=== PATIENT | female | born 1975 | race American Indian/Alaskan Native ===

== ENCOUNTER 2016-09-17 17:15 | Emergency (ER) | payer SELFPAY ==
[2016-09-17 18:39] LABS: Bacteria,Urine 1+ /HPF (Negative); Bilirubin,Urine NEG (Negative); Blood,Urine NEG (Negative); Ketones,Urine NEG (Negative); Leukocyte Esterase,Urine MOD (Negative); Mucus,Urine FEW /HPF; Nitrite,Urine NEG (Negative)
[2016-09-17] MEDS ORDERED: CATAPRES PO ONE (21:56)
[2016-09-17] MEDS ORDERED: BACTRIM DS PO ONE (21:57)
[2016-09-17 22:26] VITALS: BP 134/90
--- NOTE | 2016-09-17 22:53 | Emergency Department Report ---
Entered by LISA CLARK, acting as scribe for MARK ANTHONY PEREZ PA. ED Female HPI - General Chief complaint: Urogenital-Female Stated complaint: POSS UTI Time Seen by Provider: 09/17/16 19:42 Source: patient Mode of arrival: Ambulatory Limitations: No Limitations - History of Present Illness Initial comments: 41 y/o female with a PMHx of HTN and obesity presents to the ED c/o dysuria that began 1 week ago. Rates severity a 4/10. Aggravated with urination and alleviated with nothing. Reports associated vaginal discharge with a foul odor, but she denies vaginal itching, hematuria, vaginal bleeding, fever, chills, nausea, and vomiting. Reports small spotting when she wipes after urination. Notes she has bacterial vaginosis 2x a year, which she states her symptoms feels similar to her previous episodes. Patient blood pressure is currently elevated in the ED and she reports a slight headache, but she denies dizziness, vision changes, and stiff neck. NKDA. JESUS Complaint: vaginal discharge, dysuria Onset/Timin -: days(s) Radiation: non-radiating Severity: mild Severity scale (0 -10): 4 Quality: burning Consistency: constant Improves with: none Worsens with: urination Associated Symptoms: denies other symptoms, vaginal discharge (with foul odor), headaches (slight), dysuria. denies: vaginal bleeding, abdominal pain, nausea/ vomiting, fever/chills, loss of appetite, hematuria, rash, seizure, shortness of breath, syncope, weakness - Related Data Previous Rx's Medication Instructions Recorded Last Taken Type cloNIDine [Catapres] 0.1 mg PO BID #60 tablet 09/24/15 Unknown Rx metroNIDAZOLE [Flagyl TAB] 500 mg PO Q12HR #14 tab 09/24/15 Unknown Rx Ibuprofen [Motrin 800 MG tab] 800 mg PO Q8HR PRN #15 tablet 09/17/16 Unknown Rx Sulfamethoxazole/Trimethoprim 1 each PO BID #14 tablet 09/17/16 Unknown Rx [Bactrim DS TAB] amLODIPine [Norvasc] 5 mg PO DAILY #30 tab 09/17/16 Unknown Rx metroNIDAZOLE 0.75% [Metrogel 1 applicatio VG QHS #1 tube 09/17/16 Unknown Rx 0.75% TOPICAL] Allergies Allergy/AdvReac Type Severity Reaction Status Date / Time No Known Allergies Allergy Verified 09/17/16 17:51 ED Review of Systems Comment: All other systems reviewed and negative Constitutional: denies: chills, diaphoresis, fever, malaise, weakness Eyes: denies: eye pain, eye discharge, vision change ENT: denies: ear pain, throat pain Respiratory: denies: cough, shortness of breath, wheezing Cardiovascular: denies: chest pain, palpitations Endocrine: no symptoms reported Gastrointestinal: denies: abdominal pain, nausea, vomiting, diarrhea Genitourinary: dysuria, discharge (with a foul odor). denies: urgency, frequency, hematuria, abnormal menses, dyspareunia Musculoskeletal: denies: back pain, joint swelling, arthralgia Skin: denies: rash, lesions Neurological: headache (slight). denies: weakness, numbness, paresthesias, abnormal gait, vertigo Hematological/Lymphatic: denies: easy bleeding, easy bruising ED Past Medical Hx - Past Medical History Previous Medical History?: Yes Hx Hypertension: Yes Hx Congestive Heart Failure: Yes Additional medical history: OBESITY - Surgical History Additional Surgical History: X 3 - Social History Smoking Status: Never Smoker Substance Use Type: None - Medications Home Medications: Home Medications Medication Instructions Recorded Confirmed Last Taken Type cloNIDine [Catapres] 0.1 mg PO BID #60 tablet 09/24/15 Unknown Rx metroNIDAZOLE [Flagyl TAB] 500 mg PO Q12HR #14 tab 09/24/15 Unknown Rx Ibuprofen [Motrin 800 MG tab] 800 mg PO Q8HR PRN #15 tablet 09/17/16 Unknown Rx Sulfamethoxazole/Trimethoprim 1 each PO BID #14 tablet 09/17/16 Unknown Rx [Bactrim DS TAB] amLODIPine [Norvasc] 5 mg PO DAILY #30 tab 09/17/16 Unknown Rx metroNIDAZOLE 0.75% [Metrogel 1 applicatio VG QHS #1 tube 09/17/16 Unknown Rx 0.75% TOPICAL] ED Physical Exam - General Limitations: No Limitations General appearance: alert, in no apparent distress - Head Head exam: Present: atraumatic, normocephalic - Eye Eye exam: Present: normal appearance, PERRL, EOMI Pupils: Present: normal accommodation - ENT ENT exam: Present: normal exam, mucous membranes moist, normal external ear exam - Neck Neck exam: Present: normal inspection, full ROM. Absent: tenderness, meningismus, lymphadenopathy, thyromegaly - Respiratory Respiratory exam: Present: normal lung sounds bilaterally. Absent: respiratory distress, wheezes, rales, rhonchi, stridor, accessory muscle use, decreased breath sounds - Cardiovascular Cardiovascular Exam: Present: regular rate, normal rhythm, normal heart sounds. Absent: systolic murmur, diastolic murmur, rubs, gallop - GI/Abdominal GI/Abdominal exam: Present: soft, normal bowel sounds. Absent: distended, tenderness, guarding, rebound, rigid - External exam: Present: normal external exam. Absent: erythema, swelling, lesions, lacerations Speculum exam: Present: vaginal discharge, cervical discharge Bi-manual exam: Present: normal bi-manual exam. Absent: cervical motion tendernes, adnexal tenderness, adnexal mass, uterine enlargement - Extremities Exam Extremities exam: Present: normal inspection, full ROM - Back Exam Back exam: Present: normal inspection, full ROM. Absent: CVA tenderness (R), CVA tenderness (L) - Neurological Exam Neurological exam: Present: alert, oriented X3, normal gait - Psychiatric Psychiatric exam: Present: normal affect, normal mood - Skin Skin exam: Present: warm, dry, intact. Absent: rash ED Course Vital Signs 09/17/16 09/17/16 09/17/16 17:51 19:44 22:25 Temperature 98.6 F Pulse Rate 83 70 74 Respiratory 18 70 H Rate Blood Pressure 191/103 134/90 Blood Pressure 165/132 [Left] O2 Sat by Pulse 100 99 Oximetry ED Medical Decision Making - Medical Decision Making 41-year-old female presents with any tract infection/bacterial vaginosis ED course: UA ordered on patient. Urinalysis positive for a urinary tract infection, wet prep positive for clue cells Discussed this finding the patient. Blood pressure was elevated proptosis and the patient. Patient's blood pressure reduced to 132/94 prior to discharge so there was no need to treat the pressure in ED She is a symptomatic in the ED discussed the patient very important to follow- up with the primary care for blood pressure control. This Patient states she understands instructions. Discussed the patient with discharge home with blood pressure medication as she she'll take daily if blood pressure continues to rise and follow-up with the primary care as soon as possible. Vital signs stable patient is in no acute or respiratory distress. Discussed findings with patient about diagnoses. Discussed treatment in ED with patient Discussed antibiotics with patient as prescribed. Discussed with patient to follow up with [facility] as referred, and to return to the ED if symptoms return or worsen. Patient states understanding and will follow instructions. Pt verbally states understanding and will comply to follow up. ED Disposition Clinical Impression: Bacterial vaginosis UTI (urinary tract infection) Qualifiers: Urinary tract infection type: acute cystitis Hematuria presence: without hematuria Qualified Code(s): N30.00 - Acute cystitis without hematuria Disposition: TO HOME OR SELFCARE Is pt being admited?: No Does the pt Need Aspirin: No Condition: Stable Instructions: Bacterial Vaginosis (ED), Urinary Tract Infection in Women (ED) Additional Instructions: Follow-up with your primary care physician for blood pressure management. Take your blood pressure medication as prescribed and follow-up with your primary care. If any new symptoms such as worsening headaches, dizziness return to the ED ` Prescriptions: metroNIDAZOLE 0.75% [Metrogel 0.75% TOPICAL] 1 applicatio VG QHS #1 tube amLODIPine [Norvasc] 5 mg PO DAILY #30 tab Ibuprofen [Motrin 800 MG tab] 800 mg PO Q8HR PRN #15 tablet PRN Reason: Pain Sulfamethoxazole/Trimethoprim [Bactrim DS TAB] 1 each PO BID #14 tablet Referrals: PRIMARY CAREMD [Primary Care Provider] - 3-5 Days ELISHA CHEATHAM MD [Referring] - 3-5 Days [facility] [Outside] - 3-5 Days Forms: Accompanied Note, STI Treatment and Prevention, Work/School Release Form (ED) Time of Disposition: 21:55 This documentation as recorded by the AMBER wade JASMINE,accurately reflects the service I personally performed and the decisions made by ,MARK ANTHONY PEREZ PA.
== END 2016-09-17 22:43 | disposition home or self-care (01) ==
LOC: ED 17:15
DX: N76.0 Acute vaginitis (principal); N39.0 Urinary tract infection, site not specified; R51 Headache; I11.0 Hypertensive heart disease with heart failure; I50.9 Heart failure, unspecified
CPT/HCPCS: 81001; 81025; 87210; 87591; 99284